=== PATIENT | male | born 1940 | race African-American/Black ===

== ENCOUNTER 2023-09-27 13:03 | Inpatient (IN) | payer OTHER, MEDICAID ==
[~2023-09-27] VITALS: Ht 165.1 cm; Wt 60.8 kg
[2023-09-27 13:12] VITALS: BP_SYST 146; PULSE 91; RESP 18; TEMP 98; O2SAT 99
[2023-09-27 14:32] LABS: BASOPHILS % (AUTO) 0.8 % (0.0-2.0); EOSINOPHILS # (AUTO) 0.2 K/uL (0.0-0.4); HEMATOCRIT 36.5 % (36-54); HEMOGLOBIN 11.7 g/dL (14.0-18.0); LYMPHOCYTES # (AUTO) 1.2 K/uL (1.0-5.5); LYMPHOCYTES % (AUTO) 23.7 % (20.5-51.5); MEAN CORPUSCULAR HEMOGLOBIN 30 pg (27-31); MEAN CORPUSCULAR HGB CONC 32 % (32-36); MEAN CORPUSCULAR VOLUME 93 fL (79.0-98.0); MONOCYTES # (AUTO) 0.5 K/uL (0.0-1.0); MONOCYTES % (AUTO) 10.8 % (1.7-9.3); NEUTROPHILS # (AUTO) 2.9 K/uL (1.8-7.7); NEUTROPHILS % (AUTO) 59.7 % (40.0-70.0); PLATELET COUNT (AUTO) 218 K/uL (130-430); RED BLOOD CELL COUNT(AUTO) 3.95 MIL/uL (4.2-6.2); RED CELL DISTRIBUTION WIDTH 14.4 % (9.0-15.0); WHITE BLOOD COUNT (AUTO) 4.9 K/uL (4.8-10.8)
[2023-09-27 14:56] LABS: ALANINE AMINOTRANSFERASE 10 U/L (12-78); ALBUMIN 3.1 g/dL (3.4-4.8); ANION GAP 8 (5-15); ASPARTATE AMINOTRANSFERASE 23 U/L (10-37); CALCIUM 9.4 mg/dL (8.4-11.0); CARBON DIOXIDE 25 mmol/L (23-29); CHLORIDE 106 mmol/L (98-107); CREATININE 0.93 mg/dL (0.55-1.30); GLUCOSE 103 mg/dL (74-106); POTASSIUM 3.9 mmol/L (3.5-5.1); SODIUM SERUM 139 mmol/L (136-145); TOTAL BILIRUBIN 0.3 mg/dL (0.0-1.0); TOTAL PROTEIN, SERUM 8.7 g/dL (6.4-8.3); UREA NITROGEN, BLOOD 12 mg/dL (8-21)
[2023-09-27 14:58] LABS: BILIRUBIN,DIRECT 0.1 mg/dL (0.0-0.3); CREATINE KINASE, TOTAL 71 U/L (39-308); FREE T4 (FREE THYROXINE) 1.3 ng/dl (0.8-1.5); THYROID STIMULATING HORMONE 0.87 uIu/mL (0.36-3.74)
[2023-09-27 15:48] LABS: INR 1.1 (0.80-1.20); PROTHROMBIN TIME 11.3 SECS (9.5-12.5)
[2023-09-27 15:53] LABS: ACETONE, SERUM NEGATIVE (NEGATIVE)
[2023-09-27 15:57] VITALS: PULSE 83; O2SAT 97
[2023-09-27] MEDS ORDERED: ACETAMINOPHEN 325 MG TABLET PO PRN (16:00)
[2023-09-27] MEDS ORDERED: ALBUTEROL SULFATE 0.083% 2.5 MG/3 ML VIAL.NEB INH PRN (16:00)
[2023-09-27] MEDS ORDERED: IPRATROPIUM BROM 0.5 MG/2.5 ML VIAL.NEB (ATROVENT) INH PRN (16:00)
[2023-09-27 18:22] VITALS: BP_SYST 125; PULSE 78; RESP 18; TEMP 98.6; O2SAT 99
[2023-09-27 19:45] VITALS: O2SAT 99
[2023-09-27 20:00] VITALS: BP_SYST 156; PULSE 83; RESP 18; TEMP 97.5; O2SAT 99
[2023-09-27 20:10] VITALS: BP_SYST 156; PULSE 90; RESP 18; TEMP 97.5
[2023-09-27] MEDS: TAMSULOSIN HCL 0.4 MG CAP PO ONE (21:15)
[2023-09-27] MEDS: ATORVASTATIN 20 MG TABLET PO SCH (21:16)
[2023-09-27] MEDS: amLODIPine BESYLATE 5 MG TABLET PO ONE (21:16)
[2023-09-27] MEDS: LORazepam 2 MG/ML VIAL IVP PRN (21:17)
[2023-09-28] VITALS (7 sets, daily range): BP systolic 133–150; PULSE 68–112; RESP 15–18; TEMP 97.2–98; O2SAT 96–100
[2023-09-28 04:13] LABS: BILIRUBIN,URINE NEGATIVE (NEGATIVE); BLOOD, URINE NEGATIVE (NEGATIVE); CLARITY/URINE CLEAR (CLEAR); COLOR,URINE YELLOW (YELLOW); GLUCOSE,URINE NEGATIVE (NEGATIVE); KETONES,URINE NEGATIVE (NEGATIVE); LEUKOCYTE ESTERASE ,URINE NEGATIVE (NEGATIVE); NITRITE, URINE NEGATIVE (NEGATIVE); PROTEIN URINE NEGATIVE (NEGATIVE); UROBILINOGEN,URINE 0.2 (0.2-1.0)
[2023-09-28 05:28] LABS: BARBITURATE, URINE NEGATIVE (NEG <=200); BENZODIAZEPINE, URINE POSITIVE (NEG <=150); CANNABINOID, URINE NEGATIVE (NEG <=50); COCAINE, URINE NEGATIVE (NEG <=150); METHAMPHETAMINES SCREEN,URINE NEGATIVE (NEG <=500); OPIATE, URINE NEGATIVE (NEG <=100); PHENCYCLIDINE SCREEN,URINE NEGATIVE (NEG <=25); URINE AMPHETAMINE NEGATIVE (NEG <=500); URINE METHADONE NEGATIVE (NEG <=200); URINE OXYCODONE SCREEN NEGATIVE (NEG <=100)
[2023-09-28 05:29] LABS: UR TRICYCLIC ANTIDEPRESSANTS NEGATIVE (NEG <=300)
[2023-09-28] MEDS: ENOXAPARIN SODIUM 40 MG/0.4 ML SYRINGE SUBCUT SCH (09:24)
[2023-09-28] MEDS: ASPIRIN 81 MG TAB.CHEW PO ONE (09:25)
[2023-09-28] MEDS: TAMSULOSIN HCL 0.4 MG CAP PO SCH (09:25)
[2023-09-28] MEDS: amLODIPine BESYLATE 5 MG TABLET PO SCH (09:25)
[2023-09-28] MEDS: traZODone HCL 50 MG TABLET (DESYREL) PO PRN (20:15)
[2023-09-28] MEDS: HYDROcodone/ACETAMIN 5-325 MG TAB (NORCO/ VICODIN) PO PRN (21:59)
[2023-09-29] VITALS (7 sets, daily range): BP systolic 116–137; PULSE 84–98; RESP 16–20; TEMP 96.3–97.9; O2SAT 98–100
[2023-09-30] VITALS (8 sets, daily range): BP systolic 126–151; PULSE 88–105; RESP 16–18; TEMP 96.5–98.3; O2SAT 98–100
[2023-09-30 01:06] LABS: HEPATITIS A AB, IgM Negative (Negative); HEPATITIS B CORE AB, IgM Negative (Negative); HEPATITIS B SURFACE AG Negative (Negative)
[2023-09-30] MEDS ORDERED: AMLO5TAB4 PO (10:09)
[2023-09-30] MEDS ORDERED: LIP20 PO (10:09)
[2023-09-30] MEDS ORDERED: TAMS0.4C96 PO (10:09)
[2023-10-01 01:47] VITALS: BP_SYST 134; PULSE 102; RESP 18; TEMP 97.7
[2023-10-01] MEDS: ONDANSETRON HCL 4 MG/2 ML VIAL IVP PRN (03:44)
[2023-10-01 08:00] VITALS: O2SAT 99
[2023-10-01 12:47] VITALS: BP_SYST 119; PULSE 105; RESP 18; TEMP 96.5; O2SAT 99
[2023-10-01 12:53] VITALS: BP_SYST 119; PULSE 105; RESP 18; TEMP 96.5; O2SAT 99
[2023-10-10 13:57] LABS: HEPATITIS C VIRUS AB Reactive (0.0-0.9)
== END 2023-10-01 13:40 | DRG 641 ==
LOC: SED 13:03 → SMU 15:48
PROVIDERS: ADMIT Internal Medicine; ATTEND Internal Medicine
DX: R62.7 Adult failure to thrive (principal); Z59.00 Homelessness unspecified; E44.0 Moderate protein-calorie malnutrition; I10 Essential (primary) hypertension; J44.9 Chronic obstructive pulmonary disease, unspecified; G89.29 Other chronic pain; Z88.0 Allergy status to penicillin; Z68.22 Body mass index [BMI] 22.0-22.9, adult
CPT/HCPCS: 36415; 70450-TC; 71045; 80048; 80074; 80076; 80307; 81001; 81003; 82009; 82550; 83605; 84439; 84443; 84484; 85025; 85610; 85730; 93005; 94070; 94760; 97112-GP; 97116-GP; 99285; J1650; J2060; J2405